=== PATIENT | male | born 1985 | race Hispanic/Latino ===

== ENCOUNTER 2021-04-25 14:44 | Outpatient (CLI) | payer BC | END 2021-04-25 14:45 | disposition home or self-care (01) | LOC: CSHMRI 14:44 | PROVIDERS: ATTEND Psychiatry & Neurology Neurology | DX: M54.17 Radiculopathy, lumbosacral region (principal); Z98.890 Other specified postprocedural states; M51.37 Other intervertebral disc degeneration, lumbosacral region; M48.07 Spinal stenosis, lumbosacral region; M47.816 Spondylosis without myelopathy or radiculopathy, lumbar region | CPT/HCPCS: 72148 ==